=== PATIENT | female | born 1990 | race Caucasian/White ===

== ENCOUNTER 2024-09-07 19:10 | Emergency (ER) | payer BC, SELFPAY ==
--- NOTE | 2024-09-07 19:43 | ED.GENMED ---
History of Present Illness
General
Chief Complaint: Problems
Time Seen by Provider: 09/07/24 19:16
History of Present Illness
History of Present Illness:
34-year-old female G1, P0 currently 7 weeks LMP July 21 presenting with vaginal bleeding starting today. Patient states that she has had spotting throughout the describes that a brownish discharge. Patient states that she had
more red discharge last Sunday 09/02. Patient states that she had ultrasound at that time that showed a heart rate. Patient states that she used IVF and receives weekly ultrasounds for the first 12 weeks of . Patient reports
abdominal cramping earlier today that has since resolved. Patient states that she started having heavier vaginal bleeding with blood clots starting this evening prompting ED evaluation. Patient denies chest pain, shortness of breath or dizziness.
Past History
Past History
ED Past Medical History: Other (Ulcerative colitis, diverticulitis)
ED Past Surgical History: None
Social History
Drug: None
Living: with family
Employment: Other
Family History
Family History: Other
Phy Exam
Physical Exam
Physical Exam:
General: Alert, no acute distress, tearful
Head: NCAT
Eyes: clear conjunctiva
Neck: supple
Cardiac: regular rate and rhythm, no murmur
Lungs: clear to auscultation bilaterally. No wheezes, rales, or rhonchi. Speaking full unlabored sentences. No respiratory distress.
Abdomen: soft, nondistended nontender. No rebound or guarding.
MSK: no lower extremity edema bilaterally. No deformity
Skin: warm, dry
Neuro: Alert and oriented x3. no focal deficits
Course
Orders/Labs/Results
Orders:
Orders
09/07/24 19:24
US 1st Trimester Urgent
Reason For Exam: vaginal bleeding, 7 weeks
09/07/24 19:34
Type+Screen Urgent
Beta HCG Quantitative Urgent
Is this a screen?: No
CBC/With Diff [Complete Blood Count/With Diff] Urgent
CMP [Comprehensive Metabolic Panel] Urgent
Abnormal Lab Results
09/07/24
19:34
RBC 3.99 L 10^6/uL
(4.20-5.40)
Hct 36.2 L %
(37.0-47.0)
MCH 31.1 H pg
(27.0-31.0)
MPV 10.5 H fL
(7.4-10.4)
Absolute Monos (auto) 1.1 H 10^3/uL
(0.1-0.6)
Monocytes % 10.1 H %
(1.7-9.3)
Glucose 118 H mg/dl
(70-99)
Total Bilirubin < 0.1 L mg/dl
(0.2-1.3)
Alkaline Phosphatase 37 L U/L
(38-126)
09/07/24 19:34
09/07/24 19:34
Vital Signs
Initial and Last Documented VS:
Initial Vital Signs
Pulse Resp BP Pulse Ox
89 20 134/88 99
09/07/24 20:00 09/07/24 20:00 09/07/24 20:00 09/07/24 20:00
Last Documented Vital Signs
Pulse Resp BP Pulse Ox
92 18 130/72 99
09/07/24 21:46 09/07/24 21:46 09/07/24 21:46 09/07/24 21:46
Information
Weeks gestation: Weeks: (7)
Location: Location: (intrauterine)
MDM/Problems Addressed
Differential Diagnosis Includes:
Miscarriage, threatened , anemia, subchorionic hemorrhage
MDM/Problems Addressed:
34-year-old female G1, P0 LMP 10 presenting with vaginal bleeding with clots starting this evening. Patient reports abdominal cramping which is since resolved. Will obtain labs, type and screen, transvaginal ultrasound to assess for miscarriage
Results reviewed. Hemoglobin 12.4. Beta quant 05610 (no previous). RhoGAM not indicated. Ultrasound shows Single intrauterine with estimated gestational age of 7 week 1 day. heartbeat measures 121 bpm which is lower limits of
normal. There is a likely trace subchorionic hematoma. As read by radiology. Discussed results with patient at bedside. Hemodynamically stable. Pt states she has an appointment on Monday 09/10 with her OBGYN. Discussed return precautions. Pt
expressed verbal understanding. Pt stable for discharge home
*Critical Care Note
Total Time (30-74mins, 75-104mins- exclusive of procedures): Not Applicable
ED Attending Note
-
Portions of this chart may have been created with voice recognition software.� Occasional wrong word or��sound alike� substitutions may have occurred due to the inherent limitations of voice recognition software.
Discharge Plan
Departure
Patient Disposition: Home (Routine Discharge)
Date of Disposition: 09/07/24
Time of Disposition: 22:05
Patient with high blood pressure during this ER visit?: Yes
Discharge Problem:
Threatened
Prescriptions:
No Action
Multiple Vitamins
1 tab PO DAILY
oxycodone-acetaminophen 5 MG/325 MG tablet
1 tab PO Q4HPRN PRN (Reason: mod-severe pain) Qty: 15 0RF
Referrals:
Gali Melton PA-C [Family Provider] -
Activity Restrictions/Additional Instructions:
Follow up with OBGYN as scheduled on Tuesday
Return to the emergency department for bleeding more than 2 pads per hour for more than 2 hours, shortness of breath, dizziness or new/worsening symptoms
Interventions
Interventions:
*Risk Screen - Suicide Last Done: 09/07/24 19:14
*General Assessment Last Done: 09/07/24 19:21
ED- Fall Risk Assessment Last Done: 09/07/24 19:21
*Nursing Disposition Last Done: 09/07/24 22:09
ED-Female Genitourinary Assessment Last Done: 09/07/24 19:21
Discharge Date and Time
Discharge Date/Time: 09/07/24 22:34
Print Language: SURINAMESE
[2024-09-07 19:48] LABS: % Basophils 0.6 % (0-2); % Eosinophils 5.2 % (0-6); % Immature Granulocytes 0.3 % (0-0.5); % Lymphocytes 30.3 % (20.5-51.1); % Monocytes 10.1 % (1.7-9.3); % Neutrophils 53.5 % (42.2-75.2); Absolute Basophils 0.1 10^3/uL (0-0.2); Absolute Eosinophils 0.6 10^3/uL (0-0.7); Absolute Lymphocytes 3.2 10^3/uL (1.2-3.4); Absolute Monocytes 1.1 10^3/uL (0.1-0.6); Absolute Neutrophils 5.7 10^3/uL (1.4-6.5); Hematocrit 36.2 % (37.0-47.0); Hemoglobin 12.4 g/dL (12.0-16.0); Mean Corp Hgb Conc. 34.3 g/dL (33.0-37.0); Mean Corpuscular Hgb 31.1 pg (27.0-31.0); Mean Corpuscular Volume 90.7 fL (81.0-99.0); Mean Platelet Volume 10.5 fL (7.4-10.4); Nucleated Red Blood Cells % 0 %; Platelet Count 278 10^3/uL (130-400); Red Blood Cell Count 3.99 10^6/uL (4.20-5.40); Red Cell Dist. Width 11.9 % (11.5-14.5); White Blood Cell Count 10.7 10^3/uL (4.8-10.8)
[2024-09-07 20:00] VITALS: BP 134/88
[2024-09-07 20:04] LABS: ALT (SGPT) 21 U/L (0-35); AST (SGOT) 29 U/L (14-36); Albumin 3.7 g/dl (3.5-5.0); Alkaline Phosphatase 37 U/L (38-126); Blood Urea Nitrogen 15 mg/dl (7-17); Carbon Dioxide 22 mmol/L (22-30); Chloride 105 mmol/L (98-107); Glucose 118 mg/dl (70-99); Potassium 3.6 mmol/L (3.5-5.1); Sodium 137 mmol/L (135-145); Total Bilirubin < 0.1 mg/dl (0.2-1.3); Total Protein 6.3 g/dl (6.3-8.2); eGFR > 60.00
[2024-09-07 21:46] VITALS: BP 130/72
== END 2024-09-07 22:34 | disposition home or self-care (01) ==
LOC: EMR 19:10
PROVIDERS: EMERGENCY PHYSICIAN Emergency Medicine; FAMILY PHYSICIAN Physician Assistant Medical
DX: O20.0 Threatened abortion (principal); Z3A.01 Less than 8 weeks gestation of pregnancy
CPT/HCPCS: 99284; 76801; 80053; 84702; 85025; 86850; 86900; 86901

== ENCOUNTER → 2024-10-18 06:47 | Outpatient (REF) | payer OTHER, SELFPAY | LOC: PNTC 06:47 | PROVIDERS: ATTENDING PHYSICIAN Obstetrics & Gynecology | DX: Z36.0 Encounter for antenatal screening for chromosomal anomalies (principal); Z36.82 Encounter for antenatal screening for nuchal translucency | CPT/HCPCS: 76801; 76813 ==

== ENCOUNTER → 2024-12-11 15:40 | Outpatient (REF) | payer OTHER, SELFPAY | LOC: PNTC 15:40 | PROVIDERS: ATTENDING PHYSICIAN Obstetrics & Gynecology | DX: O09.819 Supervision of pregnancy resulting from assisted reproductive technology, unspecified trimester (principal) | CPT/HCPCS: 76811; 76817 ==

== ENCOUNTER 2025-01-07 06:25 | Outpatient (RCR) | payer OTHER, SELFPAY | END 2025-01-07 23:59 | disposition home or self-care (01) | LOC: RPT 06:25 | PROVIDERS: ATTENDING PHYSICIAN Obstetrics & Gynecology; FAMILY PHYSICIAN Physician Assistant Medical | DX: M54.50 Low back pain, unspecified (principal); M62.81 Muscle weakness (generalized); Z73.6 Limitation of activities due to disability; R32 Unspecified urinary incontinence; O26.892 Other specified pregnancy related conditions, second trimester; Z3A.24 24 weeks gestation of pregnancy | CPT/HCPCS: 97112; 97162; 97530 ==

== ENCOUNTER 2025-02-13 18:03 | Outpatient (RCR) | payer OTHER, SELFPAY | END 2025-02-13 23:59 | disposition home or self-care (01) | LOC: RPT 18:03 | PROVIDERS: ATTENDING PHYSICIAN Obstetrics & Gynecology; FAMILY PHYSICIAN Physician Assistant Medical | DX: M54.50 Low back pain, unspecified (principal); M62.81 Muscle weakness (generalized); Z73.6 Limitation of activities due to disability; R32 Unspecified urinary incontinence; O26.892 Other specified pregnancy related conditions, second trimester; Z3A.24 24 weeks gestation of pregnancy | CPT/HCPCS: 97110; 97112; 97140; 97530 ==

== ENCOUNTER 2025-02-20 18:10 | Outpatient (RCR) | payer OTHER, SELFPAY | END 2025-02-20 23:59 | disposition home or self-care (01) | LOC: RPT 18:10 | PROVIDERS: ATTENDING PHYSICIAN Obstetrics & Gynecology; FAMILY PHYSICIAN Physician Assistant Medical | DX: M54.50 Low back pain, unspecified (principal); M62.81 Muscle weakness (generalized); Z73.6 Limitation of activities due to disability; R32 Unspecified urinary incontinence; O26.892 Other specified pregnancy related conditions, second trimester; Z3A.24 24 weeks gestation of pregnancy | CPT/HCPCS: 97110; 97112; 97140; 97530 ==

== ENCOUNTER 2025-02-26 15:57 | Observation (INO) | payer OTHER, SELFPAY ==
[2025-02-26 16:20] VITALS: BP 115/67; BMI 30.2
[2025-02-26 16:53] LABS: Urine Albumin Negative (Neg - Trace); Urine Bilirubin Negative (Negative); Urine Character Clear (Clear); Urine Color Yellow; Urine Glucose Negative (Negative); Urine Ketone Negative (Negative); Urine Leukocyte Negative (Negative); Urine Nitrite Negative (Negative); Urine Occult Blood Negative (Negative); Urine Urobilinogen Negative (Neg - 1+)
[2025-02-26] MEDS: DULCOLAX 10 MG RECTAL (17:21)
[2025-02-26] MEDS: PRENATAL PLUS 1 TABLET PO (17:21)
== END 2025-02-26 18:00 | disposition home or self-care (01) ==
LOC: LDRP 15:57
PROVIDERS: ADMITTING PHYSICIAN Obstetrics & Gynecology; FAMILY PHYSICIAN Physician Assistant Medical
DX: O26.893 Other specified pregnancy related conditions, third trimester (principal); R10.9 Unspecified abdominal pain; Z3A.31 31 weeks gestation of pregnancy; K59.00 Constipation, unspecified
CPT/HCPCS: 81003; 87086; G0378

== ENCOUNTER 2025-03-22 14:31 | Observation (INO) | payer OTHER, SELFPAY ==
[2025-03-22 14:41] VITALS: BP 117/84; BMI 31.0
[2025-03-22 16:40] LABS: Urine Albumin Negative (Neg - Trace); Urine Bilirubin Negative (Negative); Urine Character Clear (Clear); Urine Color Yellow; Urine Glucose 1+ (Negative); Urine Ketone Negative (Negative); Urine Leukocyte Negative (Negative); Urine Nitrite Negative (Negative); Urine Occult Blood Negative (Negative); Urine Urobilinogen Negative (Neg - 1+); Urine pH 6.5 (5.0-9.0)
== END 2025-03-22 17:57 | disposition home or self-care (01) ==
LOC: LDRP 14:31
PROVIDERS: ADMITTING PHYSICIAN Obstetrics & Gynecology
DX: O47.03 False labor before 37 completed weeks of gestation, third trimester (principal); Z3A.34 34 weeks gestation of pregnancy; R10.9 Unspecified abdominal pain; O99.343 Other mental disorders complicating pregnancy, third trimester; F41.9 Anxiety disorder, unspecified; Z80.42 Family history of malignant neoplasm of prostate; Z80.8 Family history of malignant neoplasm of other organs or systems; Z83.6 Family history of other diseases of the respiratory system; Z82.49 Family history of ischemic heart disease and other diseases of the circulatory system; Z88.5 Allergy status to narcotic agent
CPT/HCPCS: 81003; 87086; G0378

== ENCOUNTER → 2025-04-02 14:40 | Outpatient (REF) | payer OTHER, SELFPAY | LOC: PNTC 14:40 | PROVIDERS: ATTENDING PHYSICIAN Obstetrics & Gynecology | DX: O09.819 Supervision of pregnancy resulting from assisted reproductive technology, unspecified trimester (principal) | CPT/HCPCS: 59025; 76815 ==

== ENCOUNTER → 2025-04-09 14:44 | Outpatient (REF) | payer OTHER, SELFPAY | LOC: PNTC 14:44 | PROVIDERS: ATTENDING PHYSICIAN Obstetrics & Gynecology | DX: O09.819 Supervision of pregnancy resulting from assisted reproductive technology, unspecified trimester (principal) | CPT/HCPCS: 59025; 76816 ==

== ENCOUNTER → 2025-04-16 14:49 | Outpatient (REF) | payer OTHER, SELFPAY | LOC: PNTC 14:49 | PROVIDERS: ATTENDING PHYSICIAN Obstetrics & Gynecology | DX: O09.819 Supervision of pregnancy resulting from assisted reproductive technology, unspecified trimester (principal) | CPT/HCPCS: 59025; 76815 ==

== ENCOUNTER 2025-04-18 12:47 | Observation (INO) | payer OTHER, SELFPAY ==
[2025-04-18 13:30] LABS: Hematocrit 33.6 % (37.0-47.0); Hemoglobin 11.2 g/dL (12.0-16.0); Mean Corp Hgb Conc. 33.3 g/dL (33.0-37.0); Mean Corpuscular Volume 85.3 fL (81.0-99.0); Nucleated Red Blood Cells % 0 %; Platelet Count 225 10^3/uL (130-400); Red Cell Dist. Width 13.8 % (11.5-14.5)
[2025-04-18 13:41] LABS: ALT (SGPT) 18 U/L (0-35); AST (SGOT) 26 U/L (14-36); Albumin 3.6 g/dl (3.5-5.0); Alkaline Phosphatase 126 U/L (38-126); Blood Urea Nitrogen 10 mg/dl (7-17); Calcium 9.3 mg/dl (8.4-10.2); Carbon Dioxide 20 mmol/L (22-30); Chloride 108 mmol/L (98-107); Glucose 106 mg/dl (70-99); Potassium 3.9 mmol/L (3.5-5.1); Sodium 133 mmol/L (135-145); Total Protein 6.2 g/dl (6.3-8.2); eGFR > 60.00
[2025-04-18 14:18] VITALS: BP 134/81; BMI 31.4
== END 2025-04-18 14:48 | disposition home or self-care (01) ==
LOC: PNTC-IN 12:47
PROVIDERS: ADMITTING PHYSICIAN Obstetrics & Gynecology
DX: O13.3 Gestational [pregnancy-induced] hypertension without significant proteinuria, third trimester (principal); Z3A.39 39 weeks gestation of pregnancy
CPT/HCPCS: 80053; 82570; 84156; 85025; G0378

== ENCOUNTER 2025-04-21 15:39 | Inpatient (IN) | payer OTHER, SELFPAY ==
[2025-04-21] MEDS: LR 1000 IV ×2 (15:45→18:30)
[2025-04-21 15:46] VITALS: BP 140/72; BMI 31.4
[2025-04-21 16:22] LABS: Hematocrit 36.2 % (37.0-47.0); Hemoglobin 12.0 g/dL (12.0-16.0); Mean Corp Hgb Conc. 33.1 g/dL (33.0-37.0); Mean Corpuscular Volume 84.8 fL (81.0-99.0); Nucleated Red Blood Cells % 0 %; Platelet Count 252 10^3/uL (130-400); Red Cell Dist. Width 14.0 % (11.5-14.5)
[2025-04-21] MEDS: SUBLIMAZE 100 MCG EPIDURAL (18:13)
[2025-04-21] MEDS: FENTANYL/BUPIVACAINE 100 EPIDURAL (18:13)
[2025-04-21] MEDS: TUMS CHEWABLE TABLET 400 MG PO (21:50)
[2025-04-22] MEDS: ZOFRAN 4 MG IV ×3 (01:57→13:49)
[2025-04-22] MEDS: LR 1000 IV (01:58)
[2025-04-22] MEDS: FENTANYL/BUPIVACAINE 100 EPIDURAL ×2 (02:59→11:18)
[2025-04-22] MEDS: PITOCIN 30 UNITS/NSS 500 ML IV ×2 (04:07→17:19)
[2025-04-22] MEDS: XYLOCAINE-MPF 1% VIAL 30 ML INFIL (17:34)
[2025-04-22] MEDS: MOTRIN 600 MG PO (19:26)
[2025-04-22] MEDS: COLACE 100 MG PO (19:27)
[2025-04-22] MEDS: TYLENOL 650 MG PO (21:42)
[2025-04-23] MEDS: MOTRIN 600 MG PO ×2 (04:56→16:02)
[2025-04-23 05:38] LABS: Hematocrit 27.1 % (37.0-47.0); Hemoglobin 9.0 g/dL (12.0-16.0)
[2025-04-23] MEDS: COLACE 100 MG PO ×2 (08:40→19:33)
[2025-04-23] MEDS: FEOSOL 325 MG PO (08:40)
[2025-04-23] MEDS: PRENATAL PLUS 1 TABLET PO (08:40)
[2025-04-23 17:15] LABS: Syphilis/T. pallidum Ab Reflex Negative (Negative)
[2025-04-23] MEDS: PREPARATION H MAX STRENGTH PAIN RELIEF CREAM 1 APPLIC RECTAL (22:14)
[2025-04-24] MEDS: COLACE 100 MG PO (09:00)
[2025-04-24] MEDS: MOTRIN 600 MG PO (09:00)
[2025-04-24] MEDS: FEOSOL 325 MG PO (09:00)
[2025-04-24] MEDS: PRENATAL PLUS 1 TABLET PO (09:00)
== END 2025-04-24 10:10 | disposition home or self-care (01) | DRG 807 ==
LOC: LDRP 15:39
PROVIDERS: Obstetrics & Gynecology; ADMITTING PHYSICIAN Obstetrics & Gynecology
PROC: 0KQM0ZZ Repair Perineum Muscle, Open Approach (ICD-10-PCS; 2025-04-22)
PROC: 10E0XZZ Delivery of Products of Conception, External Approach (ICD-10-PCS; 2025-04-22)
DX: O77.0 Labor and delivery complicated by meconium in amniotic fluid (principal); Z37.0 Single live birth; O70.1 Second degree perineal laceration during delivery; Z3A.39 39 weeks gestation of pregnancy; O43.193 Other malformation of placenta, third trimester
CPT/HCPCS: 36415; 85014; 85018; 85025; 86780; 86850; 86900; 86901; 88307